=== PATIENT | female | born 1980 | race Caucasian/White ===

== ENCOUNTER → 2020-08-15 10:49 | Outpatient (CLI) | payer MEDICAID, SELFPAY | PROVIDERS: PCP Student in an Organized Health Care Education/Training Program; Referring Provider Family Medicine; Visit Provider Family Medicine | DX: Z20.828 Contact with and (suspected) exposure to other viral communicable diseases (principal) | CPT/HCPCS: 87635; C9803; U0003 ==

== ENCOUNTER 2023-02-27 10:55 | Emergency (ER) | payer MEDICAID, SELFPAY ==
[2023-02-27] VITALS (15 sets, daily range): BP systolic 100–118; BP diastolic 47–103; PULSE 59–90; RESP 15–27; TEMP 35.9–36.9; O2SAT 100; BMI 27.1
--- NOTE | 2023-02-27 11:32 | EDS_ITS ---
HPI <SARMAD Roy - Last Filed: 02/27/23 13:24> History of Present Illness Chief Complaint: Abn Labs Narrative Narrative: 42-year-old female had 1 month of heavy vaginal bleeding that just ended and had outpatient hemoglobin level 5.4. She was sent in for transfusion. Her practitioner ordered a transvaginal ultrasound for March 13. Patient is asymptomatic denying chest pain, shortness of breath, lightheadedness, palpitations. She is not on blood thinners. She typically has regular periods lasting 4 to 5 days until this last cycle. PFSH <SARMAD Roy - Last Filed: 02/27/23 13:24> PFSH Home Medications ferrous sulfate 325 mg (65 mg iron) tablet (iron) 325 mg PO DAILY 14 days #14 tabs 02/27/23 [Rx Last Taken Unknown] loratadine 10 mg tablet 10 mg PO DAILY 02/27/23 [History Last Taken Unknown] Allergy/AdvReac Type Severity Reaction Status Date / Time latex Allergy Other Verified 02/27/23 10:55 Surgical History (Updated 02/27/23 @ 11:25 by Minerva Crooks) Hx of section Social History Smoking Status: Unknown if ever smoked ROS <SARMAD Roy - Last Filed: 02/27/23 13:24> ROS ED ROS Narrative Constitutional: Negative for fever, chills, malaise. CVS: Negative for palpitations, chest pain, syncope. Respiratory: Negative for shortness of breath, orthopnea. GI: Negative for abdominal pain, nausea, vomiting. : Negative for dysuria. EXAM <SARMAD Roy - Last Filed: 02/27/23 13:24> Physical Exam Narrative Exam Narrative: CONST: Patient sitting in no acute distress. EYES: Normal inspection. NECK: Normal inspection. RESP: No respiratory distress, CTAB. CVS: Regular rate and rhythm, no murmur, no gallop. ABD: Soft and nontender, no guarding or rebound, nondistended. SKIN: Color normal, no rash, warm, dry, intact. EXTREMITIES: Normal appearance, no pedal edema. NEURO: Oriented x4. PSYCH: Normal affect. Const Vital Signs: 02/27/23 10:56 02/27/23 11:25 02/27/23 13:36 Temperature 96.6 F L 97.7 F L Temperature Source Temporal Temporal Pulse Rate 77 68 Respiratory Rate 16 15 Respiratory Pattern Normal Blood Pressure 109/47 L 109/50 L Blood Pressure Mean 67 69 Blood Pressure Source Monitor Blood Pressure Position Blood Pressure Location Left Arm Pulse Ox 100 100 Oxygen Delivery Method Room Air Room Air 02/27/23 13:41 02/27/23 11:55 02/27/23 12:55 Temperature 97.9 F Temperature Source Temporal Pulse Rate 71 Respiratory Rate 22 H 18 18 Respiratory Pattern Blood Pressure 109/50 L Blood Pressure Mean 69 Blood Pressure Source Monitor Blood Pressure Position Semi-Fowlers Blood Pressure Location Left Arm Pulse Ox 100 Oxygen Delivery Method Room Air 02/27/23 13:00 02/27/23 13:56 02/27/23 14:56 Temperature 98.1 F 98.5 F Temperature Source Temporal Temporal Pulse Rate 67 59 L Respiratory Rate 21 H 27 H Respiratory Pattern Blood Pressure 100/58 L 103/63 106/72 Blood Pressure Mean 72 76 83 Blood Pressure Source Monitor Monitor Blood Pressure Position Semi-Fowlers Semi-Fowlers Blood Pressure Location Left Arm Left Arm Pulse Ox 100 100 Oxygen Delivery Method Room Air Room Air 02/27/23 14:00 02/27/23 15:00 02/27/23 15:56 Temperature 98.2 F Temperature Source Temporal Pulse Rate 66 87 Respiratory Rate 21 H 20 H 18 Respiratory Pattern Blood Pressure 106/62 104/54 L Blood Pressure Mean 76 70 Blood Pressure Source Monitor Blood Pressure Position Semi-Fowlers Blood Pressure Location Left Arm Pulse Ox 100 100 Oxygen Delivery Method Room Air Room Air <Dr. Daniel Quan MD - Last Filed: 02/27/23 18:00> Physical Exam Const Vital Signs: 02/27/23 10:56 02/27/23 11:25 02/27/23 13:36 Temperature 96.6 F L 97.7 F L Temperature Source Temporal Temporal Pulse Rate 77 68 Respiratory Rate 16 15 Respiratory Pattern Normal Blood Pressure 109/47 L 109/50 L Blood Pressure Mean 67 69 Blood Pressure Source Monitor Blood Pressure Position Blood Pressure Location Left Arm Pulse Ox 100 100 Oxygen Delivery Method Room Air Room Air 02/27/23 13:41 02/27/23 11:55 02/27/23 12:55 Temperature 97.9 F Temperature Source Temporal Pulse Rate 71 Respiratory Rate 22 H 18 18 Respiratory Pattern Blood Pressure 109/50 L Blood Pressure Mean 69 Blood Pressure Source Monitor Blood Pressure Position Semi-Fowlers Blood Pressure Location Left Arm Pulse Ox 100 Oxygen Delivery Method Room Air 02/27/23 13:00 02/27/23 13:56 02/27/23 14:56 Temperature 98.1 F 98.5 F Temperature Source Temporal Temporal Pulse Rate 67 59 L Respiratory Rate 21 H 27 H Respiratory Pattern Blood Pressure 100/58 L 103/63 106/72 Blood Pressure Mean 72 76 83 Blood Pressure Source Monitor Monitor Blood Pressure Position Semi-Fowlers Semi-Fowlers Blood Pressure Location Left Arm Left Arm Pulse Ox 100 100 Oxygen Delivery Method Room Air Room Air 02/27/23 14:00 02/27/23 15:00 02/27/23 15:56 Temperature 98.2 F Temperature Source Temporal Pulse Rate 66 87 Respiratory Rate 21 H 20 H 18 Respiratory Pattern Blood Pressure 106/62 104/54 L Blood Pressure Mean 76 70 Blood Pressure Source Monitor Blood Pressure Position Semi-Fowlers Blood Pressure Location Left Arm Pulse Ox 100 100 Oxygen Delivery Method Room Air Room Air MDM <SARMAD Roy - Last Filed: 02/27/23 13:24> [facility] Narrative Medical decision making narrative: History gathered from: Patient and family member Patient had a recent month of heavy menstrual bleeding and had outpatient labs showing anemia. Her vaginal bleeding has stopped and she is asymptomatic. She appears well and nontoxic with good color. Vital signs are normal. Hemoglobin is 5.1 with MCV of 76.7. BUN and creatinine are normal. test negative. Her last hemoglobin in the system is from 2012 and was 9.6. I suspect she has underlying anemia that became an acute on chronic issue with the irregular uterine bleeding. Patient is scheduled for an outpatient pelvic ultrasound and since she has no active bleeding this does not need to be done in the ED. Blood consent obtained and she was given 2 units PRBCs and I prescribed iron supplementation for home. Patient was discharged in stable condition. Lab Data Attestation: I reviewed the patient's lab results. Labs: Laboratory Results - last 24 hr 02/27/23 02/27/23 02/27/23 11:18 11:18 11:18 WBC Cancelled Corrected WBC Cancelled RBC Cancelled Hgb Cancelled Hct Cancelled MCV Cancelled MCH Cancelled MCHC Cancelled RDW Std Deviation Cancelled RDW Coeff of Kae Cancelled Plt Count Cancelled MPV Cancelled Immature Gran % (Auto) Cancelled Neut % (Auto) Cancelled Lymph % (Auto) Cancelled [place] % (Auto) Cancelled Eos % (Auto) Cancelled Baso % (Auto) Cancelled Absolute Neuts (auto) Cancelled Absolute Lymphs (auto) Cancelled Total Counted Cancelled Neutrophils % (Manual) Cancelled Band Neutrophils % Cancelled Lymphocytes % (Manual) Cancelled Monocytes % (Manual) Cancelled Eosinophils % (Manual) Cancelled Basophils % (Manual) Cancelled Metamyelocytes % Cancelled Myelocytes % Cancelled Promyelocytes % Cancelled Blast Cells % Cancelled Plasma Cell % (Manual) Cancelled Other Cells % Cancelled Nucleated RBC % Cancelled Nucleated RBCs/100 WBC Cancelled Differential Comment Cancelled Diff Path Review Cancelled Hypersegmented Neuts Cancelled Atypical Lymphocytes Cancelled Reactive Lymphocytes Cancelled Smudge Cells Cancelled Toxic Granulation Cancelled Toxic Vacuolation Cancelled Dohle Bodies Cancelled Juan Francisco Rods Cancelled Platelet Estimate Cancelled Plt Morphology Comment Cancelled RBC Morphology Cancelled Polychromasia Cancelled Hypochromasia Cancelled Poikilocytosis Cancelled Basophilic Stippling Cancelled Anisocytosis Cancelled Microcytosis Cancelled Macrocytosis Cancelled Spherocytes Cancelled Sickle Cells Cancelled Target Cells Cancelled Tear Drop Cells Cancelled Ovalocytes Cancelled Stomatocytes Cancelled [place] Bodies Cancelled [place] Cells Cancelled Bite Cells Cancelled Crenated Cell Cancelled Acanthocytes (Spur) Cancelled Rouleaux Cancelled Schistocytes Cancelled Sodium 140 Potassium 3.6 Chloride 109 H Carbon Dioxide 24.0 Anion Gap 7 BUN 14 Creatinine 0.60 Estim Creat Clear Calc 96.60 Est GFR (MDRD) Af Amer 141 Est GFR (MDRD) Non-Af 116 BUN/Creatinine Ratio 23.4 H Glucose 101 Calcium 8.4 L Urine Test Blood Type A POSITIVE Antibody Screen NEGATIVE Crossmatch See Detail 02/27/23 02/27/23 12:06 12:07 WBC 6.1 Corrected WBC RBC 2.32 L Hgb 5.1 L* Hct 17.8 L MCV 76.7 L MCH 22.0 L MCHC 28.7 L RDW Std Deviation 44.7 H RDW Coeff of Kae 16.6 H Plt Count 272 MPV 9.6 Immature Gran % (Auto) 0.300 Neut % (Auto) 57.2 Lymph % (Auto) 32.8 [place] % (Auto) 6.4 Eos % (Auto) 2.6 Baso % (Auto) 0.7 Absolute Neuts (auto) 3.5 Absolute Lymphs (auto) 2.00 Total Counted Neutrophils % (Manual) Band Neutrophils % Lymphocytes % (Manual) Monocytes % (Manual) Eosinophils % (Manual) Basophils % (Manual) Metamyelocytes % Myelocytes % Promyelocytes % Blast Cells % Plasma Cell % (Manual) Other Cells % Nucleated RBC % 0 Nucleated RBCs/100 WBC Differential Comment COMMENT Diff Path Review May foll Hypersegmented Neuts Atypical Lymphocytes Reactive Lymphocytes Smudge Cells Toxic Granulation Toxic Vacuolation Dohle Bodies Juan Francisco Rods Platelet Estimate Plt Morphology Comment RBC Morphology Polychromasia Hypochromasia Poikilocytosis Basophilic Stippling Anisocytosis Microcytosis Macrocytosis Spherocytes Sickle Cells Target Cells Tear Drop Cells Ovalocytes Stomatocytes [place] Bodies Maame Cells Bite Cells Crenated Cell Acanthocytes (Spur) Rouleaux Schistocytes Sodium Potassium Chloride Carbon Dioxide Anion Gap BUN Creatinine Estim Creat Clear Calc Est GFR (MDRD) Af Amer Est GFR (MDRD) Non-Af BUN/Creatinine Ratio Glucose Calcium Urine Test Negative Blood Type Antibody Screen Crossmatch <Dr. Daniel Quan MD - Last Filed: 02/27/23 18:00> [facility] Lab Data Labs: Laboratory Results - last 24 hr 02/27/23 02/27/23 02/27/23 11:18 11:18 11:18 WBC Cancelled Corrected WBC Cancelled RBC Cancelled Hgb Cancelled Hct Cancelled MCV Cancelled MCH Cancelled MCHC Cancelled RDW Std Deviation Cancelled RDW Coeff of Kae Cancelled Plt Count Cancelled MPV Cancelled Immature Gran % (Auto) Cancelled Neut % (Auto) Cancelled Lymph % (Auto) Cancelled [place] % (Auto) Cancelled Eos % (Auto) Cancelled Baso % (Auto) Cancelled Absolute Neuts (auto) Cancelled Absolute Lymphs (auto) Cancelled Total Counted Cancelled Neutrophils % (Manual) Cancelled Band Neutrophils % Cancelled Lymphocytes % (Manual) Cancelled Monocytes % (Manual) Cancelled Eosinophils % (Manual) Cancelled Basophils % (Manual) Cancelled Metamyelocytes % Cancelled Myelocytes % Cancelled Promyelocytes % Cancelled Blast Cells % Cancelled Plasma Cell % (Manual) Cancelled Other Cells % Cancelled Nucleated RBC % Cancelled Nucleated RBCs/100 WBC Cancelled Differential Comment Cancelled Diff Path Review Cancelled Hypersegmented Neuts Cancelled Atypical Lymphocytes Cancelled Reactive Lymphocytes Cancelled Smudge Cells Cancelled Toxic Granulation Cancelled Toxic Vacuolation Cancelled Dohle Bodies Cancelled Juan Francisco Rods Cancelled Platelet Estimate Cancelled Plt Morphology Comment Cancelled RBC Morphology Cancelled Polychromasia Cancelled Hypochromasia Cancelled Poikilocytosis Cancelled Basophilic Stippling Cancelled Anisocytosis Cancelled Microcytosis Cancelled Macrocytosis Cancelled Spherocytes Cancelled Sickle Cells Cancelled Target Cells Cancelled Tear Drop Cells Cancelled Ovalocytes Cancelled Stomatocytes Cancelled [place] Bodies Cancelled [place] Cells Cancelled Bite Cells Cancelled Crenated Cell Cancelled Acanthocytes (Spur) Cancelled Rouleaux Cancelled Schistocytes Cancelled Sodium 140 Potassium 3.6 Chloride 109 H Carbon Dioxide 24.0 Anion Gap 7 BUN 14 Creatinine 0.60 Estim Creat Clear Calc 96.60 Est GFR (MDRD) Af Amer 141 Est GFR (MDRD) Non-Af 116 BUN/Creatinine Ratio 23.4 H Glucose 101 Calcium 8.4 L Urine Test Blood Type A POSITIVE Antibody Screen NEGATIVE Crossmatch See Detail 02/27/23 02/27/23 12:06 12:07 WBC 6.1 Corrected WBC RBC 2.32 L Hgb 5.1 L* Hct 17.8 L MCV 76.7 L MCH 22.0 L MCHC 28.7 L RDW Std Deviation 44.7 H RDW Coeff of Kae 16.6 H Plt Count 272 MPV 9.6 Immature Gran % (Auto) 0.300 Neut % (Auto) 57.2 Lymph % (Auto) 32.8 [place] % (Auto) 6.4 Eos % (Auto) 2.6 Baso % (Auto) 0.7 Absolute Neuts (auto) 3.5 Absolute Lymphs (auto) 2.00 Total Counted Neutrophils % (Manual) Band Neutrophils % Lymphocytes % (Manual) Monocytes % (Manual) Eosinophils % (Manual) Basophils % (Manual) Metamyelocytes % Myelocytes % Promyelocytes % Blast Cells % Plasma Cell % (Manual) Other Cells % Nucleated RBC % 0 Nucleated RBCs/100 WBC Differential Comment COMMENT Diff Path Review May foll Hypersegmented Neuts Atypical Lymphocytes Reactive Lymphocytes Smudge Cells Toxic Granulation Toxic Vacuolation Dohle Bodies Juan Francisco Rods Platelet Estimate Plt Morphology Comment RBC Morphology Polychromasia Hypochromasia Poikilocytosis Basophilic Stippling Anisocytosis Microcytosis Macrocytosis Spherocytes Sickle Cells Target Cells Tear Drop Cells Ovalocytes Stomatocytes [place] Bodies Maame Cells Bite Cells Crenated Cell Acanthocytes (Spur) Rouleaux Schistocytes Sodium Potassium Chloride Carbon Dioxide Anion Gap BUN Creatinine Estim Creat Clear Calc Est GFR (MDRD) Af Amer Est GFR (MDRD) Non-Af BUN/Creatinine Ratio Glucose Calcium Urine Test Negative Blood Type Antibody Screen Crossmatch Treatment and Re-Evaluation Comments:: Seen and evaluated independently and in conjunction with physician public health assistant. Agree with notes above unless documented otherwise. Patient had heavy vaginal bleeding but not having significant symptoms of anemia, and now the bleeding is resolved. History of iron deficiency anemia as well. Outpatient labs show hemoglobin in the low 5 range. Sent for transfusion. Well-appearing no distress no tachycardia, keenly alert and well-appearing. We confirmed that the patient's hemoglobin is in the low fives. We consented her for blood, answered all questions at the bedside, she was amenable to getting 2 units, continue to take her iron. I do not think we need to give her more emergently since she no longer is bleeding and will be on iron. Follow-up advised. Discharge Plan Triage Chief Complaint: Abn Labs ED Midlevel Provider: Elisabeth White ED Provider: Daniel Quan Dx/Rx/DC Orders Clinical Impression: Anemia, Irregular uterine bleeding Instructions: Anemia, ED Dysfunctional Uterine Bleeding Prescriptions: New ferrous sulfate [iron] 325 mg (65 mg iron) tablet 325 mg PO DAILY 14 Days Qty: 14 0RF No Action loratadine 10 mg tablet 10 mg PO DAILY Primary Care Provider: Massimo Caputo Referrals: Massimo Caputo DO [Primary Care Provider] - Activity Restrictions/Additional Instructions: Please take iron supplements, include more iron in your diet, and follow-up with your provider to have the pelvic ultrasound done on March 13. Disposition Disposition: Home, Self Care
[2023-02-27 12:02] LABS: Anion Gap 7 (5-15); BUN 14 mg/dL (7-18); BUN/Creat Ratio 23.4 RATIO (10-20); Calcium,Total 8.4 mg/dL (8.5-10.1); Chloride 109 mmol/L (98-107); EST Glomerular Filtration Rate 116 mL/min (>60); Est Glom Filt Rate - Afr Amer 141 mL/min (>60); Glucose 101 mg/dL (74-106); Potassium 3.6 mmol/L (3.5-5.1); Sodium Level 140 mmol/L (136-145)
[2023-02-27 12:12] LABS: Absolute Neutrophil Count 3.5 X10^3/uL (2.0-7.7); Basophil# 0.04 X10^3/uL; Basophil% 0.7 % (0-1); Eosinophil# 0.16 X10^3/uL; Eosinophils% 2.6 % (0-5); Hematocrit 17.8 % (37-47); Lymphocyte % 32.8 % (19-41); Mean Corp Hgb Conc 28.7 g/dL (32-36); Mean Corpuscular Volume 76.7 fL (81-99); Mean Platelet Vol. 9.6 fl (6.2-12.0); Monocyte# 0.39 X10^3/uL; Monocyte% 6.4 % (0-10); NRBC Flagged by Analyzer 0 % (0-5); Neutrophil # 3.49 X10^3/uL (2.7-7.7); Neutrophil % 57.2 % (47-70); POSITIVE COUNT YES; Platelet Count 272 K/mm3 (150-450); RBC Distribution Width CV 16.6 % (11.6-14.6); RBC Distribution Width SD 44.7 fl (35.1-43.9); Red Blood Count 2.32 M/mm3 (4.2-5.4); White Blood Count 6.1 K/mm3 (4.4-11.0)
[2023-02-27 12:33] LABS: Differential Indicated SCAN CRITERIA MET; Hemoglobin 5.1 g/dL (12.0-15.0)
[2023-02-27 13:20] LABS: Internal QC Validated? YES +Cl - CLEAR BKGD; Pregnancy, Urine Negative Negative
[2023-02-28 10:29] LABS: Pathologist Review Reviewed
== END 2023-02-27 20:11 | disposition home or self-care (01) ==
PROVIDERS: Physician Assistant; Emergency Provider Emergency Medicine; PCP Student in an Organized Health Care Education/Training Program; Visit Provider Emergency Medicine
DX: D64.9 Anemia, unspecified (principal); N93.9 Abnormal uterine and vaginal bleeding, unspecified
CPT/HCPCS: 36430; 80048; 81025; 85025; 86850; 86900; 86901; 86920; 86922; 99282; J7030; J7040; P9016; A4216

== ENCOUNTER 2023-03-16 14:32 | Emergency (ER) | payer MEDICAID, SELFPAY ==
[2023-03-16 14:33] VITALS: BP 117/73; PULSE 79; RESP 18; TEMP 35.7; O2SAT 100; BMI 25.9
--- NOTE | 2023-03-16 15:26 | ED.VIS.FEGU ---
HPI HPI - Female History of Present Illness Chief Complaint: Vag Bleeding Informant: patient Narrative Narrative: Patient is a 42-year-old female with history of heavy vaginal bleeding requiring blood transfusion last month. Patient states she is trying to follow-up with [facility] through [facility] and has appointment scheduled for 3 days from now. She had a pelvic ultrasound last week. Patient notes that she started her menstrual cycle 3 days ago and is been having very heavy bleeding since. She states during the day she is going through all a tampon and an overnight pad every 1-2 hours and has to change her pad/tampon at least once a night. She ran out of her prescription iron that she received last month and has been taking [id number] iron supplement. She is also concerned about her thyroid as she is on levothyroxine and she feels that she has been losing weight. She states that over the past few days she is feeling her heart thumping more with exertion. She notes her symptoms are not quite as severe as when she needed her blood transfusion last month. She was told that the bleeding starts again and is heavy she should go to the emergency room which is why she is here today. She is having some mild associated pelvic cramping which she states is typical of menstrual cycle. Has no other complaints at this time. PFSH PFSH Home Medications ferrous sulfate 325 mg (65 mg iron) tablet (iron) 325 mg PO DAILY 14 days #14 tabs 02/27/23 [Rx Last Taken Unknown] loratadine 10 mg tablet 10 mg PO DAILY 02/27/23 [History Last Taken Unknown] ferrous sulfate 325 mg (65 mg iron) tablet (Feosol) 325 mg PO BID #60 tabs 03/16/23 [Rx Last Taken Unknown] Allergy/AdvReac Type Severity Reaction Status Date / Time latex Allergy Other Verified 03/16/23 14:33 Surgical History Hx of section Social History Smoking Status: Current some day smoker tobacco type: cigarettes ROS ROS ED Constitutional Constitutional ED: Denies chills or fever(s) Eyes Eyes: Denies blurry vision Cardiovascular Cardiovascular: Reports palpitations; Denies chest pain Respiratory/Chest Respiratory/Chest: Denies cough Gastrointestinal Gastrointestinal: Denies abdominal pain, nausea or vomiting Genitourinary Genitourinary ED: Reports other Details: Heavy vaginal bleeding, pelvic cramping Musculoskeletal Musculoskeletal: Denies arthralgias or myalgias Integumentary Denies rash Neurologic Neurologic: Denies headache(s) or weakness Psychiatric Psychiatric: Denies anxiety Hematologic/Lymphatic Hematologic/Lymphatic: Denies easy bleeding or easy bruising EXAM Physical Exam Const Vital Signs: 03/16/23 14:33 Temperature 96.2 F L Temperature Source Temporal Pulse Rate 79 Respiratory Rate 18 Blood Pressure 117/73 Blood Pressure Mean 87 Pulse Ox 100 Oxygen Delivery Method Room Air Positive well nourished and well developed General Appearance ED: well developed and NAD; Negative for pallor HEENT Reports moist mucous membranes Eyes PERRL and EOMs intact bilaterally Eyes Narrative: Mildly pale conjunctiva Neck supple and no JVD Chest Wall inspection of chest normal Resp normal respiratory effort and clear to auscultation bilaterally Cardio regular rate, regular rhythm and no murmurs GI normal to inspection, nondistended, normoactive bowel sounds, soft to palpation and non-tender Back/Spine no CVA tenderness Extremity normal to inspection and full ROM Neuro oriented x3 Sensorium / Orientation: alert Motor Exam: Negative for general weakness Psych mental status grossly normal Skin no rashes or lesions noted and no wounds General Skin Exam: Negative for pallor MDM MDM MDM Narrative Medical decision making narrative: Patient is evaluated for heavy vaginal bleeding and concern for recurrent anemia. She is minimally symptomatic at this time. Vital signs are currently normal. We will recheck an H&H. I did attempt to look up on Clindacin but I could not find any prior outpatient records to see if she has had a TIBC or ferritin level checked. We will check that today. Empirically checked type and screen as well in case she does require another blood transfusion. Patient CBC shows a mild but improved anemia with a hemoglobin of 9.7. MCV and MCH are normal however her MCHC is mildly low. Patient's BMP is normal and she has a normal TIBC and her ferritin is on the low end of normal. Serum is negative. At this time I do not think further imaging is indicated especially as patient reports that she had an outpatient pelvic ultrasound this last week. I did speak with go go dancer on-call for [facility] [employer]IST[employer], Felicity Tripathi. She recommends pain the patient on high-dose NSAIDs (600-800 mg every 6 hours for 1 week). Patient is agreeable to plan of care. Patient given return precautions. Counseled that she can continue to follow-up outpatient. Patient states she previously had been on control but had heavier bleeding and she is not currently on any. Lab Data Labs: Laboratory Results - last 24 hr 03/16/23 03/16/23 03/16/23 15:35 15:35 15:35 WBC 5.5 RBC 3.59 L Hgb 9.7 L Hct 32.6 L MCV 90.8 MCH 27.0 MCHC 29.8 L RDW Std Deviation 75.0 H RDW Coeff of Kae 22.7 H Plt Count 493 H MPV 8.8 Immature Gran % (Auto) 0.400 Neut % (Auto) 51.7 Lymph % (Auto) 37.5 [place] % (Auto) 6.4 Eos % (Auto) 2.9 Baso % (Auto) 1.1 H Absolute Neuts (auto) 2.8 Absolute Lymphs (auto) 2.06 Nucleated RBC % 0 Anisocytosis 2+ Microcytosis 1+ Macrocytosis 1+ Sodium 141 Potassium 3.5 Chloride 110 H Carbon Dioxide 25.0 Anion Gap 6 BUN 11 Creatinine 0.56 Estim Creat Clear Calc 103.51 Est GFR (MDRD) Af Amer 154 Est GFR (MDRD) Non-Af 127 BUN/Creatinine Ratio 19.8 Glucose 92 Calcium 8.4 L TIBC 318 Ferritin 18 Serum , Qual Blood Type A POSITIVE Antibody Screen NEGATIVE 03/16/23 16:30 WBC RBC Hgb Hct MCV MCH MCHC RDW Std Deviation RDW Coeff of Kae Plt Count MPV Immature Gran % (Auto) Neut % (Auto) Lymph % (Auto) [place] % (Auto) Eos % (Auto) Baso % (Auto) Absolute Neuts (auto) Absolute Lymphs (auto) Nucleated RBC % Anisocytosis Microcytosis Macrocytosis Sodium Potassium Chloride Carbon Dioxide Anion Gap BUN Creatinine Estim Creat Clear Calc Est GFR (MDRD) Af Amer Est GFR (MDRD) Non-Af BUN/Creatinine Ratio Glucose Calcium TIBC Ferritin Serum , Qual NEGATIVE Blood Type Antibody Screen Management Discussion w/another healthcare provider: Contact Lens Technician Discharge Plan Triage Chief Complaint: Vag Bleeding ED Provider: Mayela Narayanan Dx/Rx/DC Orders Clinical Impression: Abnormal vaginal bleeding, Anemia Instructions: Understanding Uterine Bleeding, Iron Supplements, ED Anemia, Type Not Specified (Adult) Prescriptions: New ferrous sulfate [Feosol] 325 mg (65 mg iron) tablet 325 mg PO BID Qty: 60 0RF No Action loratadine 10 mg tablet 10 mg PO DAILY ferrous sulfate [iron] 325 mg (65 mg iron) tablet 325 mg PO DAILY 14 Days Qty: 14 0RF Primary Care Provider: Massimo Caputo Referrals: Felicity Tripathi CNM [Med Staff - [facility]] - (as scheduled ) Massimo Caputo DO [Primary Care Provider] - Activity Restrictions/Additional Instructions: Your hemoglobin today is improved to 9.7. At this time you do not require blood transfusion. We will put you back on iron supplements. Please continue to follow-up outpatient as we discussed. Take [id number] ibuprofen 600 to 800 mg (3 to 4 tablets) every 6 hours for 1 week. Disposition Disposition: Home, Self Care
[2023-03-16 15:52] LABS: Absolute Lymphocyte Count 2.06 X10^3/uL (0.83-4.51); Absolute Neutrophil Count 2.8 X10^3/uL (2.0-7.7); Basophil# 0.06 X10^3/uL; Basophil% 1.1 % (0-1); Eosinophil# 0.16 X10^3/uL; Eosinophils% 2.9 % (0-5); Hematocrit 32.6 % (37-47); Hemoglobin 9.7 g/dL (12.0-15.0); Lymphocyte # 2.06 X10^3/ul (0.83-4.51); Lymphocyte % 37.5 % (19-41); Mean Corp Hgb Conc 29.8 g/dL (32-36); Mean Corpuscular Volume 90.8 fL (81-99); Mean Platelet Vol. 8.8 fl (6.2-12.0); Monocyte# 0.35 X10^3/uL; Monocyte% 6.4 % (0-10); NRBC Flagged by Analyzer 0 % (0-5); Neutrophil # 2.84 X10^3/uL (2.7-7.7); Neutrophil % 51.7 % (47-70); POSITIVE MORPHOLOGY YES; Platelet Count 493 K/mm3 (150-450); RBC Distribution Width CV 22.7 % (11.6-14.6); Red Blood Count 3.59 M/mm3 (4.2-5.4); White Blood Count 5.5 K/mm3 (4.4-11.0)
[2023-03-16 15:54] LABS: Differential Indicated SCAN CRITERIA MET
[2023-03-16 16:12] LABS: Anion Gap 6 (5-15); BUN 11 mg/dL (7-18); BUN/Creat Ratio 19.8 RATIO (10-20); Calcium,Total 8.4 mg/dL (8.5-10.1); Chloride 110 mmol/L (98-107); Creatinine, Serum 0.56 mg/dL (0.55-1.02); EST Glomerular Filtration Rate 127 mL/min (>60); Est Glom Filt Rate - Afr Amer 154 mL/min (>60); Estimated Creatinine Clearance 103.51 ml/min; Ferritin 18 ng/mL (8-252); Glucose 92 mg/dL (74-106); Iron Binding Capacity,Total 318 ug/dL (250-450); Potassium 3.5 mmol/L (3.5-5.1); Sodium Level 141 mmol/L (136-145)
[2023-03-16 16:24] LABS: Anisocytosis 2+; Macrocytosis 1+; Microcytosis 1+
[2023-03-16 16:48] LABS: Internal QC Validated? YES +Cl - CLEAR BKGD; Pregnancy, Serum, hCG Quali. NEGATIVE Negative
== END 2023-03-16 17:12 | disposition home or self-care (01) ==
PROVIDERS: Emergency Provider Emergency Medicine; PCP Student in an Organized Health Care Education/Training Program; Visit Provider Emergency Medicine
DX: N93.9 Abnormal uterine and vaginal bleeding, unspecified (principal); D64.9 Anemia, unspecified; F17.210 Nicotine dependence, cigarettes, uncomplicated; Z79.890 Hormone replacement therapy; Z79.899 Other long term (current) drug therapy
CPT/HCPCS: 80048; 82728; 83550; 84703; 85025; 86850; 86900; 86901; 99283; A4216